=== PATIENT | male | born 1995 | race Caucasian/White ===

== ENCOUNTER 2025-03-27 11:08 | Emergency (ER) | payer BC, SELFPAY ==
[2025-03-27 11:15] VITALS: BP 117/84; PULSE 100; RESP 18; TEMP 36.5; O2SAT 100
--- NOTE | 2025-03-27 13:09 | ED_ITS ---
HPI - Wound/Laceration General Chief Complaint: Wound/Laceration Stated Complaint: cut right hand Time Seen by Provider: 03/27/25 12:10 History of Present Illness HPI narrative: Patient is a 30-year-old male who presents ER with laceration to the right hand with radial aspect of the 2nd MCP. He was lifting a cover to a pool heater when he suffered laceration. Unsure last tetanus shot. No numbness or tingling to his finger. Bleeding controlled. Wound irrigated in triage. Related Data Allergies Allergy/AdvReac Type Severity Reaction Status Date / Time No Known Allergies Allergy Verified 03/27/25 11:35 Review of Systems Constitutional: Constitutional: Reports no additional constitutional complaints Musculoskeletal: Musculoskeletal: Reports no additional musculoskeletal complaints Integumentary/Breasts: Skin/Breast: Reports system reviewed and no additional complaints, except as docu Neurologic: Reports system reviewed and no additional complaints, except as documented PMFSH Past Medical History Medical History (Updated 03/27/25 @ 13:16 by Shreyas Goodrich MD) Healthy adult male Exam Narrative: GENERAL: Well-appearing, well-nourished, and in no acute distress. HEAD: Normocephalic, atraumatic. ENT: Mucous membranes moist. HEART: Regular rate and rhythm. Normal peripheral pulses. EXTREMITIES: Normal range of motion. No edema. SKIN: Warm, dry, no rash. 2 cm laceration to the 2nd MCP of the right hand without tendon/ligamentous involvement. No foreign body. NEURO: No focal deficits. Alert and oriented x3. PSYCH: Normal mood and affect. Course Course Emergency Course: Wound irrigated a 2nd time. Closure performed. Tetanus updated. Discharge. Vital Signs Vital signs: Vital Signs Temperature 97.7 F 03/27/25 11:15 Pulse Rate 100 03/27/25 11:15 Respiratory Rate 18 03/27/25 11:15 Blood Pressure 117/84 03/27/25 11:15 Pulse Oximetry 100 03/27/25 11:15 Oxygen Delivery Room Air 03/27/25 11:15 Temperature 97.7 F 03/27/25 11:15 Pulse Rate 100 03/27/25 11:15 Respiratory Rate 18 03/27/25 11:15 Blood Pressure 117/84 03/27/25 11:15 Pulse Oximetry 100 03/27/25 11:15 Oxygen Delivery Room Air 03/27/25 11:15 Procedures Laceration Laceration 1: Date: 03/27/25 Time: 13:09 Site: other (2nd MCP radial aspect) Side (If applicable): right Size (cm): 2 Description: linear Local Anesthetic: lidocaine 1% and with epi Amount of anesthesia used (mL): 2 Pre-repair: wound explored and irrigated extensively ====== Skin Level ====== Skin layer closed with: nylon Size (cm): 4-0 Number of sutures: 4 Technique: simple, interrupted ====== Subcutaneous Layer ====== ====== Muscle Layer ====== ====== Tendon Layer ====== Discharge Plan Discharge Clinical Impression: Hand laceration Patient Disposition: Home Condition: Stable Instructions: Laceration (ED) Additional Instructions: Return to the ER if your wound becomes red and hot, it is draining pus, or you have additional concerns. Remove the sutures in 2 weeks. You may apply topical antibiotic. Do not expose your wound to water for a prolonged period. Your tetanus shot was updated. Patient Language: Georgian Follow-up/Referrals: Ludivina Zepeda DO [Physician] - 2 Weeks UNKNOWN,DOCTOR [Primary Care Provider] -
[2025-03-27] MEDS: TETANUS,DIPHTHERIA,AC PERTUSSIS ADULT (0.5 ML) BOOSTRIX IM (13:39)
== END 2025-03-27 13:46 | disposition home or self-care (01) ==
PROVIDERS: Emergency Provider Emergency Medicine
DX: S61.411A Laceration without foreign body of right hand, initial encounter (principal); Z23 Encounter for immunization; W26.8XXA Contact with other sharp object(s), not elsewhere classified, initial encounter
CPT/HCPCS: 12001; 90471; 90715; 99282